=== PATIENT | female | born 1955 | race American Indian/Alaskan Native ===

== ENCOUNTER 2023-11-06 13:41 | Outpatient (CLI) | payer MEDICARE, BC, SELFPAY ==
[2023-11-06] VITALS (10 sets, daily range): BP systolic 113–147; BP diastolic 65–88; PULSE 8–82; RESP 16–26; TEMP 36.3; O2SAT 93–100
[2023-11-06] MEDS: MIDAZOLAM 2 MG/2 ML VIAL 1 MG IV ×2 (14:23→14:31)
[2023-11-06] MEDS: iopamidoL 15 ML VIAL 3 ML INJ (14:27)
[2023-11-06] MEDS: DEXAMETHASONE 10 MG/ML VIAL INJ (14:28)
[2023-11-06] MEDS: LIDOCAINE 1% (PF) 5 ML INJ (14:28)
--- NOTE | 2023-11-06 14:30 | DI.RAD.S_ITS ---
PROCEDURE: PAIN L INTERLAMINAR/CAUDAL INJ INDICATIONS: SPONDYLOSIS COMPARISON: None. FINDINGS: Fluoroscopic spot filming was performed to verify placement of spinal needles at the L4-L5 posterior elements level(s), as labeled on the films. Appropriate location(s) of the needle tip(s) was confirmed by injection of iodinated contrast. IMPRESSION: Successful L4-L5 posterior element needle localization for epidural steroid injection. Dictated by: Chris Rosa M.D. on 11/06/2023 at 16:46 Approved by: Chris Rosa M.D. on 11/06/2023 at 16:47
--- NOTE | 2023-11-06 14:40 | P.PCN_ITS ---
Date/Time/Diagnoses Date of procedure: 11/06/23 Time of procedure: 14:30 Procedure Notes Physician: Michael Maharaj Total Fluoroscopy time (seconds): 16 Total sedation minutes: 11 Procedure in detail & Post-procedure care: L4-5 Interlaminar Epidural Steroid Injection Indications: Annel is presenting for treatment of lumbar radiculopathy with low back and leg pain. Preoperative diagnosis: Lumbar radiculopathy Postoperative diagnosis: Same Focused Examination: Ax3 Mood and affect are normal Vital Signs: VSS ASA: 2 Consent: Following review of allergies and potential side effects/complications, including, but not necessarily limited to, infection, allergic reaction, local tissue breakdown, stroke, temporary or permanent nerve injury, paralysis, and possible , the patient indicated that they understood and agreed to pro ceed.? An informed consent document was signed by the patient, witnessed by a nurse and placed in the patient's chart.? Additionally, other treatment options including medications and physical therapy were reviewed with the patient. All questions were answered. Site was then marked. Anesthesia: After review of previous anesthetic history and IV conscious sedation, the patient was deemed safe to proceed with today's procedure with IV conscious sedation. IV sedation was accomplished with midazolam 2 mg administered by the RN after order by Dr. Maharaj. Sedation was titrated to patient comfort during the course of the procedure. Patient remained responsive to all verbal commands. Position: Prone Monitoring: NIBP, Pulse oximetry, 3 lead EKG Needle used: 18 G 3.5? Tuohy Contrast: Isovue 300M Injectate: Dexamethasone 10 mg with 1% lidocaine 2 mL Technique: The skin was prepped with chloraprep and then draped in a sterile fashion. Time out was performed as per protocol. Oxygen applied via NC. Skin and subcutaneous structures of the needle entry site was then infiltrated with 3 mL of lidocaine 1%. Under AP, lateral and contralateral oblique fluoroscopic control, the Tuohy needle was guided into the L4-5 epidural space. The space was accessed with loss of resistance technique. Isovue 300M was then injected and the spread was consistent with the epidural space. There was no evidence for intravascular or intrathecal uptake. After negative aspiration, the above- mentioned injectate was then slowly administered and the needle withdrawn. The patient expressed no unusual discomfort or paresthesias during the injection. Band-Aids applied to injection sites. EBL: less than 1 ml Complications: None Post Procedure: Patient was taken to the recovery and monitored. The patient was provided a Pain Log to continue to record the patient's response to the target- specific procedure prior to the patient's follow-up visit with the referring physician. Patient was stable upon discharge. Detailed post procedure instructions were provided. Patient was asked to call in the event of worsening pain, fever, weakness, numbness or bladder or bowel incontinence.
== END 2023-11-06 15:03 | disposition home or self-care (01) ==
PROVIDERS: Referring Provider Anesthesiology; Visit Provider Anesthesiology
DX: M54.16 Radiculopathy, lumbar region (principal)
CPT/HCPCS: 62323; 99152; J1100; J2250